=== PATIENT | female | born 2000 | race Caucasian/White ===

== ENCOUNTER 2021-03-06 23:25 | Inpatient (IN) | payer MEDICAID ==
[~2021-03-06] VITALS: Ht 172.7 cm; Wt 77.1 kg
[2021-03-07 01:04] LABS: BASOPHILS % (AUTO) 0.5 % (0.0-2.0); EOSINOPHILS % (AUTO) 0.5 % (1.0-6.0); HEMATOCRIT 37.5 % (36-46); HEMOGLOBIN 12.4 g/dL (12.0-16.0); LYMPHOCYTES # (AUTO) 1.6 K/uL (1.0-4.8); LYMPHOCYTES % (AUTO) 13.5 % (22.0-44.0); MEAN CORPUSCULAR HEMOGLOBIN 30.7 pg (26.0-34.0); MEAN CORPUSCULAR HGB CONC 33.2 G/dL (31.0-37.0); MEAN CORPUSCULAR VOLUME 93 fL (80-100); MONOCYTES # (AUTO) 0.7 K/uL (0.1-1.0); MONOCYTES % (AUTO) 6.3 % (2.0-9.0); NEUTROPHILS # (AUTO) 9.4 K/uL (1.8-7.7); NEUTROPHILS % (AUTO) 79.2 % (40.0-70.0); PLATELET COUNT (AUTO) 327 K/uL (150-450); RED BLOOD CELL COUNT(AUTO) 4.05 MIL/uL (4.00-5.20); RED CELL DISTRIBUTION WIDTH 12.5 % (11.5-14.5)
[2021-03-07 01:11] LABS: ANION GAP 6 mmol/L (8-16); CALCIUM, TOTAL 9.2 mg/dL (8.8-10.5); CARBON DIOXIDE 28 mmol/L (22-29); CHLORIDE 105 mmol/L (98-107); CREATININE 0.78 mg/dL (0.60-1.30); GLOMERULAR FILTR. RATE CALC > 60 mL/min (>60); GLUCOSE,RANDOM 102 mg/dL (70-110); SODIUM SERUM 139 mmol/L (136-145); UREA NITROGEN, BLOOD 8 mg/dL (7-18)
[2021-03-07 01:19] LABS: AMPHET/METH SCREEN,URINE NEGATIVE (NEGATIVE); BARBITURATE SCREEN, URINE NEGATIVE (NEGATIVE); BENZODIAZEPINES SCREEN,URINE NEGATIVE (NEGATIVE); CANNABINOID SCREEN,URINE NEGATIVE (NEGATIVE); COCAINE SCREEN,URINE NEGATIVE (NEGATIVE); METHADONE SCREEN, URINE NEGATIVE (NEGATIVE); OPIATE SCREEN,URINE NEGATIVE (NEGATIVE)
[2021-03-07 01:22] LABS: ALANINE AMINOTRANSFERASE 26 U/L (12-78); ALBUMIN 4.1 g/dL (3.4-5.0); ALKALINE PHOSPHATASE 54 U/L (46-116); ASPARTATE AMINOTRANSFERASE 21 U/L (15-37); BILIRUBIN,TOTAL 0.6 mg/dL (0.1-1.0); HCG,QUANTITATIVE < 1 mIU/mL (0-6); TOTAL PROTEIN, SERUM 7.2 g/dL (6.4-8.2)
[2021-03-07 01:22] LABS: PHENCYCLIDINE SCREEN,URINE NEGATIVE (NEGATIVE)
[2021-03-07] MEDS ORDERED: LORazepam 2 MG TABLET PO PRN (02:45)
[2021-03-07] MEDS ORDERED: QUEtiapine FUMARATE 100 MG TABLET PO PRN (02:45)
[2021-03-07] MEDS ORDERED: ZOLPIDEM TARTRATE 10 MG TABLET PO PRN (02:45)
[2021-03-07 03:51] LABS: COVID AG,FIA SOURCE NASOPHARYNGEAL
[2021-03-07 04:18] LABS: APPEARANCE,URINE CLEAR (CLEAR); BILIRUBIN,URINE NEGATIVE (NEGATIVE); GLUCOSE, URINE (UA) NEGATIVE (NEGATIVE); KETONES,URINE TRACE mg/dL (NEGATIVE); LEUKOCYTE ESTERASE ,URINE NEGATIVE (NEGATIVE); NITRATE,URINE NEGATIVE (NEGATIVE); OCCULT BLOOD,URINE NEGATIVE (NEGATIVE); PROTEIN,URINE NEGATIVE (NEGATIVE); UROBILINOGEN,URINE 0.2 mg/dL (<=1.0)
[2021-03-07 13:49] VITALS: BP 126/71
[2021-03-07] MEDS ORDERED: INFLUENZA VIRUS VACCINE QVS 2021-22 (6MO+)/PF 60 MCG/0.5 ML SYRINGE IM. ONE (14:30)
[2021-03-07] MEDS ORDERED: LEVO-145 PO (15:46)
[2021-03-07 16:09] VITALS: BP 113/72
[2021-03-07] MEDS: LEVONORGESTREL PO SCH (16:51)
[2021-03-07] MEDS: ETHINYL ESTRADIOL PO SCH (16:51)
[2021-03-08 06:30] LABS: CHOL/HDL RATIO 3.5 (3.9-5.7)
[2021-03-08 08:00] VITALS: BP 113/72
[2021-03-08] MEDS: ETHINYL ESTRADIOL PO SCH (08:34)
[2021-03-08] MEDS: LEVONORGESTREL PO SCH (08:34)
[2021-03-08] MEDS: ARIPiprazole 10 MG TABLET PO SCH ×2 (13:00→13:23)
[2021-03-08] MEDS ORDERED: CloNIDine HCL 0.1 MG TABLET PO PRN (15:45)
[2021-03-08] MEDS ORDERED: MAG HYDROX/AL HYDROX/SIMETH ES 30 ML SUSPENSION UDCUP PO PRN (15:45)
[2021-03-08] MEDS ORDERED: NICOTINE 14 MG/24 HOUR PATCH TD PRN (15:45)
[2021-03-08] MEDS ORDERED: IBUPROFEN 400 MG TABLET PO PRN (15:45)
[2021-03-08] MEDS ORDERED: PETROLATUM,WHITE 28 GM JELLY TP PRN (15:45)
[2021-03-08] MEDS ORDERED: LOPERAMIDE HCL 2 MG CAPSULE PO PRN (15:45)
[2021-03-08] MEDS ORDERED: ACETAMINOPHEN 325 MG TABLET PO PRN (15:45)
[2021-03-08] MEDS ORDERED: DOCUSATE SODIUM 100 MG CAPSULE PO PRN (15:45)
[2021-03-08] MEDS ORDERED: MAGNESIUM HYDROXIDE SUSPENSION 30 ML UDCUP PO PRN (15:45)
[2021-03-08] MEDS ORDERED: ONDANSETRON HCL 4 MG TABLET PO PRN (15:45)
[2021-03-08] MEDS ORDERED: GuaiFENesin/D-METHORPHAN [SUGAR-FREE] 200-20MG/10 ML SYRUP UDCUP PO PRN (15:45)
[2021-03-08] MEDS ORDERED: ALBUTEROL SULFATE HFA 90 MCG/PUFF 8 GM INHALER IH PRN (15:45)
[2021-03-09 08:00] VITALS: BP 136/89
[2021-03-09] MEDS: LEVONORGESTREL PO SCH (08:58)
[2021-03-09] MEDS: ETHINYL ESTRADIOL PO SCH (08:58)
[2021-03-09] MEDS: ARIPiprazole 10 MG TABLET PO SCH (08:58)
[2021-03-09] MEDS ORDERED: ARIP10TA38 PO (14:08)
== END 2021-03-09 15:40 | disposition home or self-care (01) | DRG 753 ==
LOC: EMS 23:27 → 3EI 03-07 13:07
PROVIDERS: ADMIT Psychiatry & Neurology Psychiatry; ATTEND Psychiatry & Neurology Psychiatry
DX: F31.4 Bipolar disorder, current episode depressed, severe, without psychotic features (principal); R45.851 Suicidal ideations; D72.829 Elevated white blood cell count, unspecified; Z20.822 Contact with and (suspected) exposure to COVID-19; F41.9 Anxiety disorder, unspecified; K59.00 Constipation, unspecified; Z79.899 Other long term (current) drug therapy; Z91.51 Personal history of suicidal behavior
CPT/HCPCS: 80053; 80061; 81003; 84702; 85025; 99285; G0480; Q9967